=== PATIENT | male | born 1965 | race Caucasian/White ===

== ENCOUNTER 2019-03-23 22:15 | Emergency (ER) | payer SELFPAY ==
[~2019-03-23] VITALS: Ht 188 cm; Wt 81.6 kg
[2019-03-23 22:15] VITALS: BP 134/82
--- NOTE | 2019-03-23 22:15 | NUR ---
BIB EMS. ON BED DELAY. VSS. CONTINUE TO MONITOR WHILE AWAITING ROOM.
--- NOTE | 2019-03-24 01:30 | NUR ---
PATIENT LEFT WITHOUT BEING SEEN BY DR. ENCISO. NO FURTHER CARE PROVIDED FOR PATIENT.
== END 2019-03-24 01:30 | disposition left against medical advice (07) ==
LOC: MED 22:15
DX: M79.604 Pain in right leg (principal); M79.605 Pain in left leg; Z53.21 Procedure and treatment not carried out due to patient leaving prior to being seen by health care provider

== ENCOUNTER 2019-03-29 22:42 | Emergency (ER) | payer SELFPAY ==
[~2019-03-29] VITALS: Ht 182.9 cm; Wt 74.8 kg
[2019-03-29 22:45] VITALS: BP 132/85
[2019-03-29 23:27] VITALS: BP 132/85
== END 2019-03-29 23:27 | disposition home or self-care (01) ==
LOC: MED 22:42
DX: M79.10 Myalgia, unspecified site (principal); R45.1 Restlessness and agitation
CPT/HCPCS: 99283